=== PATIENT | male | born 1945 | race Caucasian/White ===

== ENCOUNTER 2020-11-19 07:02 | Day surgery (SDC) | payer MEDICARE ==
[2020-11-12 15:39] LABS: BASOPHILS % (AUTO) 0.3 % (0-1); EOSINOPHILS # (AUTO) 0.4 X10'3 (0-0.9); EOSINOPHILS % (AUTO) 6.6 % (0-6); LYMPHOCYTES # (AUTO) 0.5 X10'3 (1.1-4.8); LYMPHOCYTES % (AUTO) 7.7 % (21-51); MEAN CORPUSCULAR HEMOGLOBIN 31.5 PG (27.0-31.0); MEAN CORPUSCULAR HGB CONC 33.4 g/dL (33.0-36.5); MEAN CORPUSCULAR VOLUME 94.3 FL (78-98); MEAN PLATELET VOLUME 7.9 FL (7.4-10.4); MONOCYTES # (AUTO) 0.5 X10'3 (0-0.9); MONOCYTES % (AUTO) 7.4 % (2-12); NEUTROPHILS # (AUTO) 5.2 X10'3 (1.8-7.7); PRE OP HEMATOCRIT 43.1 % (42.0-52.0); PRE OP HEMOGLOBIN 14.4 g/dL (14.0-17.9); PRE OP PLATELET COUNT 131 X10'3 (140-440); RED BLOOD COUNT 4.57 X10'6 (4.70-6.10); RED CELL DISTRIBUTION WIDTH 14.5 % (11.5-14.5)
[2020-11-12 15:57] LABS: ALBUMIN/GLOBULIN RATIO 1.4 (1.1-1.5); ALKALINE PHOSPHATASE 77 IU/L (46-116); BLOOD UREA NITROGEN 30 MG/DL (7-18); BUN/CREATININE RATIO 18.2 (5.4-32.0); CALCIUM 8.8 MG/DL (8.5-10.1); CHLORIDE 106 MMOL/L (99-107); CREATININE 1.65 MG/DL (0.60-1.10); PRE OP ALT 26 U/L (30-65); PRE OP ANION GAP 8 (8-16); PRE OP AST 19 U/L (10-37); PRE OP BILIRUB, TOTAL 0.7 MG/DL (0.0-1.0); PRE OP GLUCOSE 141 MG/DL (70-104); PRE OP POTASSIUM 4.8 MMOL/L (3.4-5.1); PRE OP SODIUM 139 MMOL/L (135-145); TOTAL CARBON DIOXIDE 24.6 MMOL/L (24-32); TOTAL PROTEIN 6.9 G/DL (6.4-8.2); eGFR 41 ML/MIN
[~2020-11-19] VITALS: Ht 180.3 cm; Wt 80.4 kg
[~2020-11-19 07:02] MED LIST: ASPI-529 PO; ATOR40TA PO; AZEL137S4 BOTHNARES; BUPIVAcaine/PF 2.5 mg/ml (0.25%) 30ml vial ONE; BUPR150T8 PO; CETI10TA15 PO; FLO0.4C PO; FLUT16SP2 BOTHNARES; NAPR-1154 PO; PANT-47 PO; TADA5TAB2 PO; [UNRECOGNIZED DRUG - OTHER] NS; cefazolin/dext.iso 2gm/100ml 100 ML IV ONE; famotidine 20mg tablet PO ONE; ringers solution, lacted 1,000 ML IV SCH
[2020-11-19 07:30] VITALS: BP 126/82
[2020-11-19] MEDS ORDERED: hydrALAZINE 20mg/ml inj. IV PRN (08:15)
[2020-11-19] MEDS ORDERED: proCHLORperazine 10 MG/2 ml inj IV PRN (08:15)
[2020-11-19] MEDS ORDERED: ondansetron/PF 4mg/2ml inj IV PRN (08:15)
[2020-11-19] MEDS ORDERED: morphine 4 MG/ML inj SYRINge IV PRN (08:15)
[2020-11-19] MEDS ORDERED: ringers solution, lacted 1,000 ML IV SCH (08:15)
[2020-11-19] MEDS ORDERED: acetaminophen 1,000mg/100ml IV 100 ML IV PRN (08:15)
[2020-11-19] MEDS ORDERED: meperidine/PF 25mg/ml syringe IV PRN ×3 (08:15)
[2020-11-19] MEDS ORDERED: labetalol 20mg/4ml (5mg/ml) syringe IV PRN (08:15)
[2020-11-19] MEDS ORDERED: morphine 2 MG/ML inj. syringe IV PRN (08:15)
[2020-11-19] MEDS ORDERED: LIDOcaine 0.5% (5mg/ml) 50ml vial ONE (08:17)
[2020-11-19] MEDS ORDERED: fentaNYL/PF 50MCG/1 ML 2ML syringe ONE (09:49)
[2020-11-19] MEDS ORDERED: midazolam 1 mg/ML 2ml injection ONE (10:04)
[2020-11-19] MEDS ORDERED: propofol inj 20 ML IV ONE (10:07)
[2020-11-19 10:25] VITALS: BP 116/78
[2020-11-19 10:30] VITALS: BP 109/79
[2020-11-19 10:40] VITALS: BP 125/83
--- NOTE | 2020-11-19 10:40 | NUR ---
Received from OR via [facility] IN STABLE CONDITION, accompanied by Anesthesiologist and CONCIERGE report given by Deshawn. Addendum: 11/19/20 at 1041 by Consuelo Coelho RN Amended: Links added.
[2020-11-19 11:00] VITALS: BP 140/91
[2020-11-19 11:10] VITALS: BP 136/90
--- NOTE | 2020-11-19 11:10 | NUR ---
PATIENT DISCHARGED HOME IN STABLE CONDITION VIA WHEELCHAIR AFTER WRITTEN AND VERBAL DISCHARGE INSTRUCTIONS GIVEN. PATIENT GAVE VERBAL UNDERSTANDING OF INSTRUCTIONS GIVEN. PATIENT RECEIVED VALUABLES FROM ADMITTING UPON DISCHARGE FROM THE HOSPITAL. Addendum: 11/19/20 at 1136 by Consuelo Coelho RN Amended: Links added.
== END 2020-11-19 11:15 | disposition home or self-care (01) ==
LOC: PAS 07:02
PROVIDERS: ATTEND Orthopaedic Surgery Hand Surgery
DX: G56.02 Carpal tunnel syndrome, left upper limb (principal); M67.432 Ganglion, left wrist; N40.0 Benign prostatic hyperplasia without lower urinary tract symptoms; K21.9 Gastro-esophageal reflux disease without esophagitis; F32.9 Major depressive disorder, single episode, unspecified; E78.00 Pure hypercholesterolemia, unspecified; G43.909 Migraine, unspecified, not intractable, without status migrainosus; Z20.822 Contact with and (suspected) exposure to COVID-19; Z98.890 Other specified postprocedural states; Z85.46 Personal history of malignant neoplasm of prostate; Z95.2 Presence of prosthetic heart valve; Z79.82 Long term (current) use of aspirin; Z79.899 Other long term (current) drug therapy; Z72.89 Other problems related to lifestyle
CPT/HCPCS: 25111; 36415; 64721; 80053; 82948; 85025; 93005; A6222; J2001; J2250; J2704; J3010; J3490; U0003; A4215; J7120

== ENCOUNTER 2024-03-03 15:14 | Emergency (ER) | payer MEDICARE ==
[~2024-03-03] VITALS: Ht 177.8 cm; Wt 69.3 kg
[~2024-03-03 15:14] MED LIST changes: -BUPIVAcaine/PF 2.5 mg/ml (0.25%) 30ml vial ONE; -cefazolin/dext.iso 2gm/100ml 100 ML IV ONE; -famotidine 20mg tablet PO ONE; -ringers solution, lacted 1,000 ML IV SCH
[2024-03-03] MEDS: LIDOcaine 1% W/epiNEPHrine 1:100,000 20ml vial SQ ONE (16:15)
[2024-03-03 16:46] VITALS: BP 130/68; PULSE 70; RESP 16; TEMP 97.6; O2SAT 98
== END 2024-03-03 16:47 | disposition home or self-care (01) ==
LOC: ER 15:15
DX: S90.852A Superficial foreign body, left foot, initial encounter (principal); Z79.82 Long term (current) use of aspirin; Z79.899 Other long term (current) drug therapy; W22.8XXA Striking against or struck by other objects, initial encounter; Y93.89 Activity, other specified; Y92.89 Other specified places as the place of occurrence of the external cause; Y99.8 Other external cause status
CPT/HCPCS: 99284; A6258; A6402; A6449; Z7610

== ENCOUNTER 2025-07-21 10:21 | Day surgery (SDC) | payer MEDICARE ==
[~2025-07-21] VITALS: Ht 177.8 cm; Wt 83.9 kg
[2025-07-21] VITALS (9 sets, daily range): BP systolic 103–134; BP diastolic 73–83; PULSE 60–72; RESP 12–16; TEMP 98.1; O2SAT 94–100
[~2025-07-21 10:21] MED LIST changes: +ATOR20TA PO; -ATOR40TA PO; -CETI10TA15 PO; +DEXT15LI31 PO; +DONE10TA44 PO; -FLO0.4C PO; +LIDOcaine 2% Viscous 15ml cup MM ONE; +MEMA10TA22 PO; -NAPR-1154 PO; -PANT-47 PO; +PANT40TA54 PO; -TADA5TAB2 PO; -[UNRECOGNIZED DRUG - OTHER] NS; +ringers solution, lacted 1,000 ML IV SCH; +simethicone 40mg/0.6ml oral drops 15ml PO ONE
[2025-07-21] MEDS ORDERED: fentaNYL/PF 50MCG/1 ML 2ML syringe ONE (12:16)
[2025-07-21] MEDS ORDERED: propofol inj 20 ML IV ONE (12:31)
--- NOTE | 2025-07-25 07:03 | PATHOLOGY REPORT ---
[facility] [address] [place] [address] SURGICAL PATHOLOGY REPORT CaseNumber: [id number] Surgeon:Esteban Dial M.D. CLINICAL INFORMATION CLINICAL INFORMATION: Not provided. DIAGNOSIS DIAGNOSIS: GASTRIC ANTRUM, BIOPSY - NO SIGNIFICANT INFLAMMATION, EDEMA, OR VASCULAR CONGESTION - NO INTESTINAL METAPLASIA - NO DYSPLASIA OR MALIGNANCY - NO H. PYLORI ORGANISMS BY IMMUNOHISTOCHEMISTRY MICROSCOPIC DESCRIPTION MICROSCOPIC DESCRIPTION: Reviewed is a single H&E-stained slide showing serial sections and levels of a single fragment of gastric antral-type mucosa. There is no significant inflammation, edema, or vascular congestion. There is no intestinal metaplasia. There are no dysplastic or neoplastic features. Also, no H. pylori organisms are highlighted by immunohistochemistry. GROSS DESCRIPTION GROSS DESCRIPTION: Received in a container of formalin labeled with the patient's name, number, and "antrum BX" is a 0.5 x 0.2 x 0.1 cm piece of medel tissue. The specimen is entirely submitted as A1. The time at which the specimen was removed was 1225. The time at which the specimen was placed in formalin was 1225. Electronically signed by: Shawn Hwang M.D. 07/25/2025 4:38:00 AM
== END 2025-07-21 14:01 | disposition home or self-care (01) ==
LOC: PAS 10:21
PROVIDERS: ATTEND Internal Medicine Gastroenterology
DX: Z12.11 Encounter for screening for malignant neoplasm of colon (principal); R13.10 Dysphagia, unspecified; K21.00 Gastro-esophageal reflux disease with esophagitis, without bleeding; K22.2 Esophageal obstruction; K29.70 Gastritis, unspecified, without bleeding; K44.9 Diaphragmatic hernia without obstruction or gangrene; E78.5 Hyperlipidemia, unspecified; F32.A Depression, unspecified; F17.210 Nicotine dependence, cigarettes, uncomplicated; G89.29 Other chronic pain; K21.9 Gastro-esophageal reflux disease without esophagitis; N18.9 Chronic kidney disease, unspecified; Q39.9 Congenital malformation of esophagus, unspecified; Z86.0100 Personal history of colon polyps, unspecified; Z85.46 Personal history of malignant neoplasm of prostate; Z98.890 Other specified postprocedural states; Z79.82 Long term (current) use of aspirin
CPT/HCPCS: 43239; 88305; 88342; A4615; G0105; J2704; J3010; J7120; Z7512; Z7610; 45378